=== PATIENT | female | born 1990 | race Asian ===

== ENCOUNTER 2018-11-29 16:41 | Outpatient (CLI) | payer OTHER ==
[2018-11-29 17:35] LABS: PLATELET COUNT 312 K/uL (152-353)
[2018-11-29 17:58] LABS: POTASSIUM 4.3 mmol/L (3.6-5.2)
== END 2018-11-29 22:55 | disposition home or self-care (01) ==
LOC: LAB 16:41
PROVIDERS: Family Medicine
DX: J45.909 Unspecified asthma, uncomplicated (principal); K21.9 Gastro-esophageal reflux disease without esophagitis; R53.83 Other fatigue; E63.9 Nutritional deficiency, unspecified; Z13.220 Encounter for screening for lipoid disorders
CPT/HCPCS: 80053; 80061; 82306; 82607; 82747; 84439; 84443; 84481; 85027